=== PATIENT | female | born 1950 | race African-American/Black ===

== ENCOUNTER 2019-07-14 12:45 | Outpatient (CLI) | payer MEDICARE ==
--- NOTE | 2019-07-14 13:03 | RAD ---
EXAM: Chest 2 views: HISTORY: Dyspnea COMPARISON: 12/03/2018 FINDINGS: There is a normal-sized cardiomediastinal silhouette. There is no evidence of consolidation, mass, or pleural effusion. The bones are unremarkable. IMPRESSION: No evidence of acute cardiopulmonary disease
== END 2019-07-14 12:46 | disposition home or self-care (01) ==
LOC: RAD 12:45
PROVIDERS: ATTEND Internal Medicine Critical Care Medicine
DX: R06.00 Dyspnea, unspecified (principal)
CPT/HCPCS: 71046

== ENCOUNTER 2024-04-19 14:37 | Inpatient (IN) | payer MEDICARE ==
[2024-04-19 15:08] VITALS: BMI 23.7
[2024-04-19] MEDS ORDERED: Lorazepam 2 MG/ML VIAL SLOW IVP PRN (16:07)
[2024-04-19] MEDS ORDERED: Glucagon 1 MG/ML KIT IM PRN (16:07)
[2024-04-19] MEDS ORDERED: Dextrose 5% in Water 1,000 ML IV PRN (16:07)
[2024-04-19] MEDS ORDERED: Dextrose 50% Abboject 50 ML SYRINGE SLOW IVP PRN (16:07)
[2024-04-19] MEDS: Acetaminophen 325 MG TAB PO PRN (18:46)
[2024-04-20 04:30] LABS: #Basophils Less than 0.03 10x3/uL (0.0-0.2); %Basophils 0.3 % (0.0-1.0); %Eosinophils 3.6 % (0.0-10.0); %Lymphocytes 14.3 % (21.0-51.0); %Monocytes 8.4 % (0.0-10.0); %Neutrophils 73.1 % (42.0-75.0); Hematocrit 35.8 % (36.0-47.0); Hemoglobin 11.5 g/dL (12.0-16.0); Mean Corpuscular HGB CONC 32.1 g/dL (32.0-36.0); Mean Corpuscular Hemoglobin 27.6 pg (27.0-31.0); Mean Corpuscular Volume 85.9 fL (78.0-98.0); Mean Platelet Volume 10.1 fL (7.4-10.4); Platelet Count 161 10x3/uL (130-400); RBC Distribution Width 13.9 % (11.5-14.5); Red Blood Cell (RBC) Count 4.17 mill/uL (4.20-5.40)
[2024-04-20 04:49] LABS: Anion Gap 16 mmol/L (10-20); BUN (Urea Nitrogen) 23 mg/dL (9.8-20.1); Calc. Creatinine Clearance 45 mL/min (70-130); Calcium 9.2 mg/dL (7.8-10.44); Carbon Dioxide 21 mmol/L (23-31); Cardiac Risk 3.6 (Less than 4.5); Chloride 105 mmol/L (98-107); Cholesterol 209 mg/dl (< 200 Desired); Estimated GFR 48; Glucose 90 mg/dL (83-110); HDL Cholesterol 58 mg/dL (>60 Neg Risk); LDL Cholesterol, Calculated 141 mg/dL; Sodium 138 mmol/L (136-145); Triglycerides 48 mg/dL (Less than 150)
[2024-04-20 04:50] LABS: Hemoglobin A1c 5.1 % (4.0-6.0)
[2024-04-20] MEDS: NIFEdipine XL 90 MG ER.TAB PO SCH (09:25)
[2024-04-20] MEDS: Carvedilol 25 MG TAB PO SCH ×2 (09:25→18:06)
[2024-04-20] MEDS: Mirabegron ER 25 MG ER.TAB PO SCH (09:25)
[2024-04-20] MEDS: hydrALAZINE 25 MG TAB PO SCH (09:25)
[2024-04-20] MEDS: Lorazepam 2 MG/ML VIAL SLOW IVP PRN (15:49)
[2024-04-20] MEDS: levETIRAcetam 500 MG (5 mL) VIAL SLOW IVP SCH (18:41)
[2024-04-20] MEDS: Clopidogrel Bisulfate 75 MG TAB PO SCH (18:41)
[2024-04-20 18:50] LABS: Cardiac Risk 3.2 (Less than 4.5)
[2024-04-20] MEDS: Donepezil HCl 10 MG TAB PO SCH (20:16)
[2024-04-20] MEDS: Nortriptyline HCl 25 MG CAP PO SCH (20:16)
[2024-04-20] MEDS: Atorvastatin Calcium 20 MG TAB PO SCH (20:16)
[2024-04-21 04:45] LABS: #Basophils Less than 0.03 10x3/uL (0.0-0.2); %Basophils 0.2 % (0.0-1.0); %Eosinophils 3.6 % (0.0-10.0); %Lymphocytes 20.8 % (21.0-51.0); %Monocytes 10.1 % (0.0-10.0); %Neutrophils 64.2 % (42.0-75.0); Hematocrit 34.2 % (36.0-47.0); Hemoglobin 10.9 g/dL (12.0-16.0); Mean Corpuscular HGB CONC 31.9 g/dL (32.0-36.0); Mean Corpuscular Hemoglobin 27.3 pg (27.0-31.0); Mean Corpuscular Volume 85.7 fL (78.0-98.0); Mean Platelet Volume 10.2 fL (7.4-10.4); Platelet Count 160 10x3/uL (130-400); RBC Distribution Width 14.2 % (11.5-14.5); Red Blood Cell (RBC) Count 3.99 mill/uL (4.20-5.40)
[2024-04-21 05:09] LABS: Anion Gap 14 mmol/L (10-20); BUN (Urea Nitrogen) 24 mg/dL (9.8-20.1); Calc. Creatinine Clearance 44 mL/min (70-130); Calcium 8.8 mg/dL (7.8-10.44); Carbon Dioxide 23 mmol/L (23-31); Chloride 104 mmol/L (98-107); Estimated GFR 48; Glucose 86 mg/dL (83-110); Potassium 3.9 mmol/L (3.5-5.1); Sodium 137 mmol/L (136-145)
[2024-04-21] MEDS: levETIRAcetam 500 MG (5 mL) VIAL SLOW IVP SCH (09:21)
[2024-04-21] MEDS: FLU (Fluad Triv) TS24-25 (65UP)/MF59C/PF 45 MCG/0.5 ML Syringe IM ONE (09:24)
[2024-04-21] MEDS: Lisinopril 2.5 MG TAB PO SCH (12:20)
[2024-04-21] MEDS: Clopidogrel Bisulfate 75 MG TAB PO SCH (15:28)
[2024-04-21] MEDS: Atorvastatin Calcium 40 MG TAB PO SCH (21:43)
[2024-04-22 03:47] LABS: #Basophils Less than 0.03 10x3/uL (0.0-0.2); %Basophils 0.2 % (0.0-1.0); %Eosinophils 3.7 % (0.0-10.0); %Lymphocytes 14.8 % (21.0-51.0); %Monocytes 8.1 % (0.0-10.0); %Neutrophils 72.8 % (42.0-75.0); Hematocrit 33.2 % (36.0-47.0); Hemoglobin 10.8 g/dL (12.0-16.0); Mean Corpuscular HGB CONC 32.5 g/dL (32.0-36.0); Mean Corpuscular Hemoglobin 27.8 pg (27.0-31.0); Mean Corpuscular Volume 85.6 fL (78.0-98.0); Platelet Count 143 10x3/uL (130-400); RBC Distribution Width 14.5 % (11.5-14.5); Red Blood Cell (RBC) Count 3.88 mill/uL (4.20-5.40)
[2024-04-22 04:21] LABS: Anion Gap 13 mmol/L (10-20); BUN (Urea Nitrogen) 33 mg/dL (9.8-20.1); Calc. Creatinine Clearance 31 mL/min (70-130); Calcium 8.5 mg/dL (7.8-10.44); Carbon Dioxide 23 mmol/L (23-31); Chloride 102 mmol/L (98-107); Estimated GFR 31; Glucose 97 mg/dL (83-110); Potassium 4.4 mmol/L (3.5-5.1); Sodium 134 mmol/L (136-145)
[2024-04-22] MEDS: Carvedilol 6.25 MG TAB PO SCH ×2 (08:48→16:15)
[2024-04-22] MEDS: Spironolactone 25 MG TAB PO SCH (08:48)
[2024-04-22] MEDS: Clopidogrel Bisulfate 75 MG TAB PO SCH (08:50)
[2024-04-22] MEDS: Dapagliflozin Propanediol 10 MG TAB PO SCH (08:51)
[2024-04-22] MEDS: Enoxaparin 30 MG (0.3 mL) SYRINGE SC SCH (21:23)
[2024-04-23 04:40] LABS: Anion Gap 14 mmol/L (10-20); BUN (Urea Nitrogen) 37 mg/dL (9.8-20.1); Calc. Creatinine Clearance 33 mL/min (70-130); Calcium 8.5 mg/dL (7.8-10.44); Carbon Dioxide 22 mmol/L (23-31); Chloride 105 mmol/L (98-107); Estimated GFR 34; Glucose 84 mg/dL (83-110); Potassium 4.3 mmol/L (3.5-5.1); Sodium 137 mmol/L (136-145)
[2024-04-23] MEDS: Sacubitril 49 MG/Valsartan 51 MG TABLET PO SCH (08:56)
[2024-04-23] MEDS: Carvedilol 6.25 MG TAB PO SCH ×2 (08:56→17:22)
[2024-04-23] MEDS ORDERED: Sacubitril 24MG/Valsartan 26 MG TAB PO SCH (09:00)
[2024-04-24 04:08] LABS: Anion Gap 11 mmol/L (10-20); BUN (Urea Nitrogen) 34 mg/dL (9.8-20.1); Calc. Creatinine Clearance 34 mL/min (70-130); Calcium 8.9 mg/dL (7.8-10.44); Carbon Dioxide 22 mmol/L (23-31); Chloride 106 mmol/L (98-107); Estimated GFR 35; Glucose 102 mg/dL (83-110); Potassium 4.2 mmol/L (3.5-5.1); Sodium 135 mmol/L (136-145)
[2024-04-24 16:23] VITALS: BP 138/83; TEMP 97.7
== END 2024-04-24 17:27 | disposition home or self-care (01) | DRG 64 ==
LOC: 2SE 14:37 → OBSVTOIN 04-20 17:31
PROVIDERS: ADMIT Internal Medicine; ATTEND Family Medicine
PROC: 4A00X4Z Measurement of Central Nervous Electrical Activity, External Approach (ICD-10-PCS; principal; 2024-04-20)
DX: I63.9 Cerebral infarction, unspecified (principal); I50.31 Acute diastolic (congestive) heart failure; N17.9 Acute kidney failure, unspecified; I42.0 Dilated cardiomyopathy; R56.9 Unspecified convulsions; F03.90 Unspecified dementia, unspecified severity, without behavioral disturbance, psychotic disturbance, mood disturbance, and anxiety; N18.30 Chronic kidney disease, stage 3 unspecified; E11.22 Type 2 diabetes mellitus with diabetic chronic kidney disease; I12.9 Hypertensive chronic kidney disease with stage 1 through stage 4 chronic kidney disease, or unspecified chronic kidney disease; E78.5 Hyperlipidemia, unspecified; Z79.899 Other long term (current) drug therapy; Z96.651 Presence of right artificial knee joint; G43.909 Migraine, unspecified, not intractable, without status migrainosus; F41.9 Anxiety disorder, unspecified; M19.90 Unspecified osteoarthritis, unspecified site
CPT/HCPCS: 36415; 36416; 70551; 80048; 80061; 83036; 84146; 84443; 85025; 90653; 93306; 95700; 95712; 95957; 96374; G0378; J1650; J1953; J2060